=== PATIENT | female | born 1985 ===

== ENCOUNTER 2023-09-18 07:09 | Emergency (ER) | payer SELFPAY ==
[2023-09-18] MEDS: Lidocaine/Epineph/Tetracaine 3 ML Syringe TOP ONE ×2 (07:32→08:55)
[2023-09-18] MEDS: Sodium Chloride 0.9% 2.5 ML Syringe FLUSH PRN (07:34)
[2023-09-18] MEDS: Sodium Chloride 0.9% 10 ML Syringe FLUSH PRN (07:34)
[2023-09-18 07:37] LABS: BASOPHILS ABSOLUTE AUTO 0.02 K/uL (0.00-0.20); BASOPHILS PERCENT AUTO 0.3 % (0.0-1.0); EOSINOPHILS ABSOLUTE AUTO 0.07 K/uL (0.00-0.45); EOSINOPHILS PERCENT AUTO 1.2 % (0.0-6.0); HEMATOCRIT 41.8 % (37.0-47.0); HEMOGLOBIN 14.8 g/dL (12.0-16.0); IMMATURE GRAN ABSOLUTE AUTO 0.01 K/uL (0.00-0.05); IMMATURE GRAN PERCENT AUTO 0.2 % (0.0-0.4); LYMPHOCYTES PERCENT AUTO 24.3 % (24.0-44.0); MEAN CORPUSCULAR HEMOGLOBIN 32.1 pg (28.0-32.0); MEAN CORPUSCULAR HGB CONC 35.4 g/dL (32.0-36.0); MEAN CORPUSCULAR VOLUME 90.7 fL (83.0-99.0); MONOCYTES ABSOLUTE AUTO 0.49 K/uL (0.00-0.80); MONOCYTES PERCENT AUTO 8.5 % (0.0-8.0); NEUTROPHILS ABSOLUTE AUTO 3.77 K/uL (1.80-7.70); NEUTROPHILS PERCENT AUTO 65.5 % (41.0-71.0); RED BLOOD CELL COUNT 4.61 M/uL (4.10-5.30); WHITE BLOOD CELL COUNT,WBC 5.76 K/uL (3.9-11.3)
[2023-09-18 07:45] LABS: MEAN PLATELET VOLUME 10.6 fL (9.4-12.3); PLATELET COUNT,PLT 166 K/uL (150-400)
[2023-09-18 08:43] LABS: ALBUMIN 4.1 g/dL (3.4-5.0); BILIRUBIN TOTAL 0.8 mg/dL (0.2-1.0); CALCIUM 9.3 mg/dL (8.5-10.1); CARBON DIOXIDE,CO2 25.6 mmol/L (21.0-32.0); CREATININE 0.6 mg/dL (0.6-1.0); EST CRCL DRUG DOSING (CG) 136.77 mL/min; PROTEIN TOTAL,TP 8.2 g/dL (6.4-8.2)
[2023-09-18 10:01] LABS: APPEARANCE,URINE CLEAR; BILIRUBIN,URINE NEGATIVE (NEGATIVE); COLOR,URINE YELLOW; GLUCOSE,URINE NEGATIVE (NEGATIVE); KETONES,URINE 15 mg/dL (NEGATIVE); LEUKOCYTE ESTERASE,URINE NEGATIVE (NEGATIVE); NITRITE,URINE NEGATIVE (NEGATIVE); OCCULT BLOOD,URINE LARGE (NEGATIVE); PH,URINE 6.5 (5.0-8.0); PROTEIN,URINE NEGATIVE (NEGATIVE); UROBILINOGEN,URINE 0.2 EU/dL (<2.0)
[2023-09-18 10:13] LABS: AMPHETAMINES SCREEN, URINE NEGATIVE (CUTOFF=500); BARBITURATE SCREEN,URINE NEGATIVE (CUTOFF=200); BENZODIAZEPINES SCREEN,URINE NEGATIVE (CUTOFF=150); BUPRENORPHINE SCREEN,URINE NEGATIVE (CUTOFF=10); METHADONE SCREEN, URINE NEGATIVE (CUTOFF=200); METHAMPHETAMINES SCREEN, URINE NEGATIVE (CUTOFF=500); OXYCODONE SCREEN,URINE NEGATIVE (CUT0FF=100); PCP SCREEN,URINE NEGATIVE (CUTOFF=25); THC SCREEN,URINE 20 NG/ML NEGATIVE (CUTOFF=50)
[2023-09-18 10:38] LABS: BACTERIA,URINE RARE (NEGATIVE); EPITHELIAL CELLS,URINE FEW (NONE-FEW); WBC,URINE 0-2 (0-5/HPF)
[2023-09-18] MEDS: Bacitracin Oint 1 GM U/D Packet TOP ONE (11:23)
[2023-09-18] MEDS: Lidocaine 1% PF 2 ML SDV INJECT ONE (11:24)
[2023-09-18] MEDS: Sodium Chloride 0.9% 1,000 ML IV ONE (11:59)
[2023-09-18] MEDS: Ibuprofen 600 MG Tab PO ONE (11:59)
[2023-09-18] MEDS: Potassium Chloride 20 MEQ Tab.ER PO ONE (11:59)
== END 2023-09-18 13:40 | disposition home or self-care (01) ==
LOC: MW.ED 07:09
DX: S09.90XA Unspecified injury of head, initial encounter (principal); S00.431A Contusion of right ear, initial encounter; S40.021A Contusion of right upper arm, initial encounter; S70.12XA Contusion of left thigh, initial encounter; S70.11XA Contusion of right thigh, initial encounter; Z75.8 Other problems related to medical facilities and other health care; Y04.2XXA Assault by strike against or bumped into by another person, initial encounter
CPT/HCPCS: 36415; 70450; 70486; 71045; 72100; 72125; 73502; 80053; 80305; 81001; 81025; 83690; 85025; 96360; 99284; A9270; J3490; J7030

== ENCOUNTER 2024-07-28 20:39 | Emergency (ER) | payer MEDICAID ==
[2024-07-28] MEDS: Acetaminophen/HYDROcodone 325-5 MG Tab PO ONE (21:20)
== END 2024-07-28 22:15 | disposition home or self-care (01) ==
LOC: MW.ED 20:39
DX: S89.91XA Unspecified injury of right lower leg, initial encounter (principal); Z79.899 Other long term (current) drug therapy; Z75.8 Other problems related to medical facilities and other health care; X58.XXXA Exposure to other specified factors, initial encounter
CPT/HCPCS: 99283; A9270